=== PATIENT | male | born 1990 | race Hispanic/Latino ===

== ENCOUNTER 2018-04-15 17:37 | Emergency (ER) | payer SELFPAY ==
[2018-04-15] MEDS ORDERED: LIDOCAINE 2% MPF 5 ML VIAL ONE (18:09)
[2018-04-15] MEDS ORDERED: HYDROCODONE/APAP 7.5/325 MG TAB ONE (18:10)
--- NOTE | 2018-04-15 18:51 | RAD REPORT ---
EXAM DESCRIPTION: RAD - Foot Right 3 View - 04/15/2018 6:30 pm CLINICAL HISTORY: FB Trauma COMPARISON: No comparisons FINDINGS: A large nail foreign body is seen in the medial aspect of the midfoot. A fracture is not i dentified.
--- NOTE | 2018-04-15 19:17 | EDPHYS ---
Physician Documentation [facility] Name: Vikram Lezama Age: 27 yrs Sex: Male : 1990 Arrival Date: 04/15/2018 Time: 17:46 Bed 24 Private MD: None, None ED Physician Hiren Landrum HPI: 04/15 18:01 This 27 yrs old Male presents to ER via Wheelchair with complaints of Foreign kb Body - IN FOOT. 18:01 The patient or guardian reports the patient has a suspected foreign body, of the top of kb right foot. The reported likely foreign body is a nail. Onset: The symptoms/episode began/occurred 1 hour(s) ago. Current symptoms: foreign body sensation, pain, in the area of the foreign body. Treatment Prior to Arrival: none. The patient has not experienced similar symptoms in the past. The patient has not recently seen a physician. Pt got a nail stuck in right foot that was ejected from a nail gun. Historical: - Allergies: 17:56 No Known Allergies; aj - Home Meds: 17:56 None [Active]; aj - PMHx: 17:56 None; aj - PSHx: 17:56 Unable to obtain; aj - Immunization history:: Adult Immunizations up to date. - Social history:: Smoking status: Patient/guardian denies using tobacco. - Ebola Screening: : Patient negative for fever greater than or equal to 101.5 degrees Fahrenheit, and additional compatible Ebola Virus Disease symptoms Patient denies exposure to infectious person Patient denies travel to an Ebola-affected area in the 21 days before illness onset No symptoms or risks identified at this time. ROS: 18:05 Constitutional: Negative for fever, chills, and weight loss, Cardiovascular: Negative kb for chest pain, palpitations, and edema, Respiratory: Negative for shortness of breath, cough, wheezing, and pleuritic chest pain, Abdomen/GI: Negative for abdominal pain, nausea, vomiting, diarrhea, and constipation, Neuro: Negative for headache, weakness, numbness, tingling, and seizure. 18:05 MS/extremity: Positive for of the dorsum of right foot, foreign body - nail. Exam: 18:05 Constitutional: This is a well developed, well nourished patient who is awake, alert, kb and in no acute distress. Head/Face: Normocephalic, atraumatic. Chest/axilla: Normal chest wall appearance and motion. Nontender with no deformity. No lesions are appreciated. Cardiovascular: Regular rate and rhythm with a normal S1 and S2. No gallops, murmurs, or rubs. Normal PMI, no JVD. No pulse deficits. Respiratory: Lungs have equal breath sounds bilaterally, clear to auscultation and percussion. No rales, rhonchi or wheezes noted. No increased work of breathing, no retractions or nasal flaring. Abdomen/GI: Soft, non-tender, with normal bowel sounds. No distension or tympany. No guarding or rebound. No evidence of tenderness throughout. Skin: Warm, dry with normal turgor. Normal color with no rashes, no lesions, and no evidence of cellulitis. Neuro: Awake and alert, GCS 15, oriented to person, place, time, and situation. Cranial nerves II-XII grossly intact. Motor strength 5/5 in all extremities. Sensory grossly intact. Cerebellar exam normal. Normal gait. 18:05 Musculoskeletal/extremity: Extremities: grossly normal except: noted in the dorsum of right foot: pain, foreign body. Vital Signs: 17:56 Temp 98.9(TE); Weight 65.77 kg; Height 5 ft. 7 in. (170.18 cm); aj 18:00 BP 149 / 117 LA Sitting (auto/reg); Pulse 65 MON; Resp 18 S; Temp 99.7(O); Pulse Ox jp3 100% on R/A; Pain 10/10; 18:30 BP 144 / 101 LA Sitting (auto/reg); Pulse 52 MON; Resp 18 S; Pulse Ox 100% on R/A; Pain jp3 9/10; 17:56 Body Mass Index 22.71 (65.77 kg, 170.18 cm) Procedures: 19:15 Foreign Body Removal: a nail, from the right right foot, by traction. Dressinx4s kb were used to dress the wound, The patient tolerated the removal well. MDM: 17:54 Patient medically screened. kb 18:05 Data reviewed: vital signs, nurses notes. Data interpreted: Pulse oximetry: on room air kb is 100 %. Interpretation: normal. ED course: nail head noted to top of right foot, end of nail noted to bottom of right foot. 19:15 Counseling: I had a detailed discussion with the patient and/or guardian regarding: the kb historical points, exam findings, and any diagnostic results supporting the discharge/admit diagnosis, radiology results, the need for outpatient follow up, a family practitioner, to return to the emergency department if symptoms worsen or persist or if there are any questions or concerns that arise at home. 04/15 17:56 Order name: Foot Right 3 View XRAY; Complete Time: 18:53 kb Administered Medications: 18:11 Drug: [place] (7.5 mg-325 mg) 1 tabs Route: PO; rv Disposition: 04/15/18 19:16 Discharged to Home. Impression: Puncture wound with foreign body of foot - FB removed. - Condition is Stable. - Discharge Instructions: Foreign Body. - Work release form, Medication Reconciliation Form, Thank You Letter, Antibiotic Education, Prescription Opioid Use form. - Follow up: Emergency Department; When: As needed; Reason: Worsening of condition. Follow up: Private Physician; When: 2 - 3 days; Reason: Recheck today's complaints, Continuance of care, Re-evaluation by your physician. Addendum: 04/30/2018 10:54 Co-signature as Attending Physician, Hiren Landrum MD I agree with the assessment and k dr plan of care. Signatures: Dispatcher [employer] EDPham [place], TEACHER EMOTIONALLY IMPAIRED-C TEACHER EMOTIONALLY IMPAIRED-Ckb Megan Moe RN RN aj Rittger, Kevin, MD MD [facility] Dylan Craft RN RN rv Corrections: (The following items were deleted from the chart) 04/15 19:30 19:16 04/15/2018 19:16 Discharged to Home. Impression: Puncture wound with foreign body rv of foot - FB removed. Condition is Stable. Forms are Medication Reconciliation Form, Thank You Letter, Antibiotic Education, Prescription Opioid Use. Follow up: Emergency Department; When: As needed; Reason: Worsening of condition. Follow up: Private Physician; When: 2 - 3 days; Reason: Recheck today's complaints, Continuance of care, Re-evaluation by your physician. kb
--- NOTE | 2018-04-15 19:17 | ER ---
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 Transition of care: patient was not received from another setting of care. Onset of symptoms was April 15, 2018. Risk Assessment: Do you want to hurt yourself or someone else? Patient reports no desire to harm self or others. Initial Sepsis Screen: Does the patient meet any 2 criteria? No. Patient's initial sepsis screen is negative. Does the patient have a suspected source of infection? No. Patient's initial sepsis screen is negative. Care prior to arrival: None. 17:55 Method Of Arrival: Wheelchair 17:55 Acuity: DOROTHY 3 aj Triage Assessment: 17:56 General: Appears in no apparent distress. uncomfortable, Behavior is calm, cooperative, aj appropriate for age. Pain: Complains of pain in right foot. Neuro: Level of Consciousness is awake, alert, obeys commands, Oriented to person, place, time, situation, Appropriate for age. Respiratory: Airway is patent Respiratory effort is even, unlabored, Respiratory pattern is regular, symmetrical. Derm: Skin is intact, is healthy with good turgor, Skin is pink, warm \T\ dry. normal. Injury Description: Foreign body is located ball of right foot and dorsum of right foot is Metal nail was sustained 1-2 hours ago. Historical: - Allergies: 17:56 No Known Allergies; aj - Home Meds: 17:56 None [Active]; aj - PMHx: 17:56 None; aj - PSHx: 17:56 Unable to obtain; aj - Immunization history:: Adult Immunizations up to date. - Social history:: Smoking status: Patient/guardian denies using tobacco. - Ebola Screening: : Patient negative for fever greater than or equal to 101.5 degrees Fahrenheit, and additional compatible Ebola Virus Disease symptoms Patient denies exposure to infectious person Patient denies travel to an Ebola-affected area in the 21 days before illness onset No symptoms or risks identified at this time. Screenin:13 Abuse screen: Denies threats or abuse. Denies injuries from another. Nutritional rv screening: No deficits noted. Tuberculosis screening: No symptoms or risk factors identified. Fall Risk None identified. Assessment: 18:12 General: Appears in no apparent distress. comfortable, Behavior is calm, cooperative. rv Pain: Complains of pain in right foot Pain currently is 10 out of 10 on a pain scale. Neuro: Level of Consciousness is awake, alert, obeys commands, Oriented to person, place, time, situation. Cardiovascular: Capillary refill < 3 seconds. Respiratory: Airway is patent. GI: No signs and/or symptoms were reported involving the gastrointestinal system. : No signs and/or symptoms were reported regarding the genitourinary system. EENT: No signs and/or symptoms were reported regarding the EENT system. Derm: Wound noted right foot Wound is PUNCTURE WOUND (NAIL). Musculoskeletal: NAIL PUNCTURED THROUGH RIGHT FOOT. Vital Signs: 17:56 Temp 98.9(TE); Weight 65.77 kg; Height 5 ft. 7 in. (170.18 cm); aj 18:00 BP 149 / 117 LA Sitting (auto/reg); Pulse 65 MON; Resp 18 S; Temp 99.7(O); Pulse Ox jp3 100% on R/A; Pain 10/10; 18:30 BP 144 / 101 LA Sitting (auto/reg); Pulse 52 MON; Resp 18 S; Pulse Ox 100% on R/A; Pain jp3 9/10; 17:56 Body Mass Index 22.71 (65.77 kg, 170.18 cm) ED Course: 17:46 Patient arrived in ED. sb2 17:47 None, None is Private Physician. sb2 17:54 Pham Bridges FNP-C [facility]. kb 17:54 Hiren Landrum MD is Attending Physician. kb 17:56 Triage completed. aj 17:56 Arm band placed on left wrist. Patient placed in an exam room. aj 18:03 Bed in low position. Call light in reach. Side rails up X 1. Pillow given. Pulse ox on. jp3 NIBP on. 18:04 Cut patient Boot off on the right foot. jp3 18:27 X-ray completed. Portable x-ray completed in exam room. Patient tolerated procedure ag1 well. 18:28 Foot Right 3 View XRAY In Process Unspecified. EDMS 19:30 Patient did not have IV access during this emergency room visit. rv Administered Medications: 18:11 Drug: [place] (7.5 mg-325 mg) 1 tabs Route: PO; rv Outcome: 19:16 Discharge ordered by . kimani 19:29 Discharged to home via wheelchair. rv 19:29 Condition: improved 19:29 Discharge instructions given to patient, Instructed on discharge instructions, follow up and referral plans. 19:30 Patient left the ED. rv Signatures: Dispatcher [employer] EDMS Pham Bridges, ONLINE MERCHANDISING SPECIALIST-C ONLINE MERCHANDISING SPECIALIST-Megan Matos, RN RN Aide Montano ag1 Renate Asencio sb2 Dylan Craft RN RN rv Marco A Robins jp3 Corrections: (The following items were deleted from the chart) 18:34 16:00 BP 149 / 117 Sitting Auto L Arm Regular; Pulse 65bpm; MonitorResp 18bpm; jp3 Spontaneous; Pulse Ox 100% RA; Temp 99.7F Oral; Pain 10/10; jp3
== END 2018-04-15 19:30 | disposition home or self-care (01) ==
LOC: ER 17:37
DX: S91.341A Puncture wound with foreign body, right foot, initial encounter (principal); W29.4XXA Contact with nail gun, initial encounter; Y93.9 Activity, unspecified; Y92.9 Unspecified place or not applicable
CPT/HCPCS: 99283